=== PATIENT | male | born 1970 | race African-American/Black ===

== ENCOUNTER 2018-12-01 10:47 | Emergency (ER) | payer SELFPAY ==
[~2018-12-01] VITALS: Ht 175.3 cm; Wt 78.6 kg
[2018-12-01] MEDS ORDERED: IBUPROFEN 400 MG TABLET PO ONE (12:00)
[2018-12-01] MEDS ORDERED: ACETAMINOPHEN 325 MG TABLET PO ONE (12:00)
[2018-12-01] MEDS ORDERED: LIDOCAINE 5% TRANSDERMAL PATCH TD ONE (12:00)
[2018-12-01 14:00] VITALS: BP 139/86
== END 2018-12-01 14:14 | disposition home or self-care (01) ==
LOC: EMS 10:50
DX: S29.011A Strain of muscle and tendon of front wall of thorax, initial encounter (principal); I10 Essential (primary) hypertension; X58.XXXA Exposure to other specified factors, initial encounter; Y93.89 Activity, other specified; Y92.098 Other place in other non-institutional residence as the place of occurrence of the external cause; Y99.8 Other external cause status
CPT/HCPCS: 93005